=== PATIENT | female | born 1980 | race Two or more races ===

== ENCOUNTER 2017-09-13 20:30 | Emergency (ER) | payer MEDICAID ==
[~2017-09-13] VITALS: Ht 167.6 cm; Wt 61.2 kg
[2017-09-13 20:42] VITALS: BP 109/71
[2017-09-13] MEDS ORDERED: ZOFRAN4 M3 ORAL (20:43)
[2017-09-13] MEDS ORDERED: IBUPROFEN600 MG ORAL (20:43)
[2017-09-13] MEDS ORDERED: NORCO 5-325 TA1 EACH ORAL (20:43)
[2017-09-13] MEDS ORDERED: Methocarbamol 750mg tab ORAL ONE (21:30)
[2017-09-13] MEDS ORDERED: Norco 5mg/325mg tab ORAL ONE (21:30)
[2017-09-13] MEDS ORDERED: Ketorolac 30mg Inj IM ONE (21:30)
[2017-09-13] MEDS ORDERED: ROBAXIN-750750 MG PO (21:36)
[2017-09-13] MEDS ORDERED: ACETAMINOPHEN-1 EAC1 ORAL (21:36)
[2017-09-13 21:45] VITALS: BP 0/0
--- NOTE | 2017-09-14 02:05 | Emergency Room Report ---
History of Present Illness General Chief Complaint: Back Injury Source: Patient Present Illness HPI 37-year-old patient notes pain to her right lower back. Mother at bedside states that she's had this pain for many years now. Patient does have extensive psychiatric history and is a poor historian. patient did fall one week ago and hurt her right leg. Had x-rays of the leg which were unremarkable. Pain in her back is not new and is typical. Mother states that patient is seeing pain management and is currently scheduled for MRI as outpatient. 8 out of 10, throbbing, nonradiating. Denies bowel or bladder incontinence. Denies leg or motor weakness. No other aggravating relieving factors. Denies any other associated symptoms Allergies: Coded Allergies: No Known Allergies (Unverified , 09/13/17) Patient History Past Medical History: none Past Surgical History: none Pertinent Family History: none Social History: Denies: smoking, alcohol use, drug use Last Menstrual Period: hysterectomy 07/2017 Now: No Immunizations: UTD Reviewed Nursing Documentation: PMH: Agreed; PSxH: Agreed Review of Systems All Other Systems: negative except mentioned in HPI Physical Exam Vital Signs Date Time Temp Pulse Resp B/P (MAP) Pulse Ox O2 Delivery O2 Flow Rate FiO2 09/13/17 20:36 98.3 89 20 109/71 97 Room Air 98.2 Sp02 EP Interpretation: reviewed, normal General Appearance: alert, GCS 15, non-toxic, mild distress Head: normocephalic Eyes: bilateral eye normal inspection, bilateral eye PERRL ENT: normal ENT inspection Neck: normal inspection Respiratory: normal inspection Cardiovascular #1: normal inspection Gastrointestinal: normal inspection Rectal: deferred Genitourinary: no CVA tenderness, no vertebral tenderness Musculoskeletal: tender - paraspinal lumbar tenderness Neurologic: alert, oriented x3, responsive, motor strength/tone normal, sensory intact, speech normal Psychiatric: depressed affect, anxious Skin: normal inspection Lymphatic: normal inspection Medical Decision Making Diagnostic Impression: Primary Impression: Back pain Qualified Codes: M54.5 - Low back pain; G89.29 - Other chronic pain ER Course Hospital Course 37-year-old female presents ED complaining of lower back pain. No evidence of trauma Differential diagnoses include: pyelonephritis, kidney stone, muscle strain, Lspine fracture Clinical course Patient placed on stretcher. After initial history, physical exam reveals female in mild distress. There is no vertebral body tenderness. No flank pain. No bruising. Some paraspinal lumbar tenderness extending into the buttock on the right side. Mother states this pain is chronic for the patient. Is scheduled to have MRI as outpatient. I see no reason for emergent imaging at this time. Patient given pain meds here. On reassessment pain is overall improved Diagnosis - back pain Stable and discharged to home with prescription for Tylenol #3, Robaxin. Followup with PMD. Return to ED if symptoms recur or worsen Last Vital Signs Date Time Temp Pulse Resp B/P (MAP) Pulse Ox O2 Delivery O2 Flow Rate FiO2 09/13/17 21:45 0/0 09/13/17 21:32 98.3 09/13/17 20:42 89 20 97 Room Air Status: improved Disposition: HOME, SELF-CARE Condition: Stable Scripts Methocarbamol* (ROBAXIN-750*) 750 Mg Tablet 750 MG PO TID, #21 TAB 0 Refills Prov: Vincent Niño MD 09/13/17 Acetaminophen With Codeine (T#3) (TYLENOL #3 TAB*) Y Tab 1 TAB ORAL Q8H PRN for For Pain, #20 TAB Prov: Vincent Niño MD 09/13/17 Patient Instructions: Back Pain, Adult Vincent Niño MD Sep 14, 2017 02:05
== END 2017-09-13 21:45 | disposition home or self-care (01) ==
LOC: EMR 21:06
DX: M54.5 Low back pain (principal); G89.29 Other chronic pain
CPT/HCPCS: 96372; 99284; J1885

== ENCOUNTER 2017-09-19 12:41 | Emergency (ER) | payer MEDICAID ==
[~2017-09-19] VITALS: Ht 165.1 cm; Wt 60.8 kg
[~2017-09-19 12:41] MED LIST: ACETAMINOPHEN-1 EAC1 ORAL; IBUPROFEN600 MG ORAL; NORCO 5-325 TA1 EACH ORAL; ROBAXIN-750750 MG PO; ZOFRAN4 M3 ORAL
[2017-09-19 13:06] VITALS: BP 111/73
--- NOTE | 2017-09-19 13:29 | Emergency Room Report ---
History of Present Illness General Chief Complaint: Medication Refill Source: Patient Present Illness HPI 37 YO Female presents to the ED c/o running out of her pain medication (Colora) ,and her soonest appt. is not until October 29. Pt. states she has chronic back pain after an accident. pt. denies new trauma or fall. denies fevers, chills, hx of cancer or recent spinal procedure. pt. denies urinary retention or incontinence. Pt. describes 10/10 in severity pain that radiates across the low back. Allergies: Coded Allergies: No Known Allergies (Unverified , 09/13/17) Patient History Past Medical History: see triage record Past Surgical History: none Pertinent Family History: none Now: No Reviewed Nursing Documentation: PMH: Agreed; PSxH: Agreed Nursing Documentation-PMH Past Medical History: No History, Except For Review of Systems All Other Systems: negative except mentioned in HPI Physical Exam Vital Signs Date Time Temp Pulse Resp B/P (MAP) Pulse Ox O2 Delivery O2 Flow Rate FiO2 09/19/17 12:56 98.1 106 20 111/73 99 Room Air 98.1 Sp02 EP Interpretation: reviewed, normal General Appearance: no apparent distress, alert, GCS 15, non-toxic Head: normocephalic, atraumatic ENT: hearing grossly normal, normal voice Neck: full range of motion Respiratory: lungs clear, normal breath sounds, speaking full sentences Cardiovascular #1: regular rate, rhythm Gastrointestinal: non tender, soft Genitourinary: no CVA tenderness Musculoskeletal: back normal, gait/station normal, normal range of motion, tender - TTP to lumbar area, paraspinal and midline, no evidence of infection, pt. ambulatory. Neurologic: alert, oriented x3, responsive, motor strength/tone normal, sensory intact, normal gait, speech normal, grossly normal Psychiatric: judgement/insight normal Skin: normal color, no rash, warm/dry, well hydrated Medical Decision Making PA Attestation Dr. Graves is my supervising Physician whom patient management has been discussed with. Diagnostic Impression: Primary Impression: Chronic back pain greater than 3 months duration Additional Impression: Request for narcotic pain medication ER Course 37 YO Female presents to the ED c/o running out of her pain medication (Colora) ,and her soonest appt. is not until October 29. Pt. states she has chronic back pain after an accident. pt. denies new trauma or fall. denies fevers, chills, hx of cancer or recent spinal procedure. pt. denies urinary retention or incontinence. Pt. describes 10/10 in severity pain that radiates across the low back. Ddx considered but are not limited to: drug seeking, OD, chronic pain, new acute injury, epidural abscess or metastasis just to name a few. Vital signs: are WNL, pt. is afebrile H&PE are most consistent with request for narcotic medication refill. -CURES: I reviewed this persons cures report and it shows that she currently has an active prescription for a 30 day supply which should not be out until September 28. I printed out this patient's cures report history for the last 6 months which shows regularly prescribed pain medications as well as several prescriptions that were filled several days later. Review of emergency department records here shows that patient was here last month for similar complaint and she received a prescription and discharge notes to follow-up with primary care. ORDERS: none required at this time, the diagnosis is clinical ED INTERVENTIONS: Pt. given safe pain prescribing for emergency department flyer along with a copy of her CURES report. D/w the pt. that the Emergency Department only prescribes CONTROLLED SUBSTANCES / NARCOTIC PAIN MEDICATIONS for acute injuries. There is no evidence of an emergent condition requiring the requested medication refill, and no evidence of an acute injury. Controlled substances are very addictive and require close monitoring when being prescribed controlled substances an outpatient treatment The emergency department is not a resource to be used as outpatient followup, and therefore reserve the regular prescribing, or refill or regularly prescribed controlled substances for your PCP or your chronic pain management provider for your safety -- We urge you to follow up with your PRIMARY CARE DOCTOR/ CHRONIC PAIN MANAGEMENT DRRas who can fully evaluate you , Monitor your condition and safely prescribe any necessary medications that are controlled. DISCHARGE: At this time pt. is stable for d/c to home. Will provide printed patient care instructions, and any necessary prescriptions. Care plan and follow up instructions have been discussed with the patient prior to discharge. Last Vital Signs Date Time Temp Pulse Resp B/P (MAP) Pulse Ox O2 Delivery O2 Flow Rate FiO2 09/19/17 13:06 98.1 106 20 111/73 99 Room Air 98.1 Disposition: HOME, SELF-CARE Condition: Stable Scripts Ibuprofen* (MOTRIN*) 600 Mg Tablet 600 MG ORAL THREE TIMES A DAY, #20 TAB 0 Refills Prov: Cyndy Townsend 09/19/17 Lidocaine (Lidoderm) 1 Each Adh..patch 1 PATCH TOPIC DAILY, #30 PATCH 0 Refills Patch(es) may remain in place for up to 12 hours in any 24-hour period. Prov: Cyndy Townsend 09/19/17 Referrals: [facility],REFERRING (PCP) Patient Instructions: Medicine Refill at the Emergency Department Additional Instructions: Take you previously prescribed medications as directed by your doctor. Follow up with a Primary Care Provider in 3-5 days, even if your symptoms have resolved. --Please review list of primary care clinics, if you do not already have a primary care provider - Please note that this Emergency Department Report was dictated using farmhoppingprocurement services manager technology software, occasionally this can lead to erroneous entry secondary to interpretation by the dictation equipment. Cyndy Townsend Sep 19, 2017 13:29
[2017-09-19] MEDS ORDERED: HYDROcodone/Acetamin 7.5/325 tab ORAL ONE (13:30)
[2017-09-19] MEDS ORDERED: IBUPROFEN600 MG ORAL (13:30)
[2017-09-19] MEDS ORDERED: LIDODERM700 M1 TOPIC (13:30)
[2017-09-19 13:36] VITALS: BP 111/73
== END 2017-09-19 13:35 | disposition home or self-care (01) ==
LOC: EMR 13:25
DX: Z76.0 Encounter for issue of repeat prescription (principal); G89.29 Other chronic pain; M54.9 Dorsalgia, unspecified
CPT/HCPCS: 99283